=== PATIENT | male | born 1970 | race Caucasian/White ===

== ENCOUNTER 2020-06-21 09:16 | Inpatient (IN) | payer MEDICAID ==
[~2020-06-21] VITALS: Ht 188 cm; Wt 140.6 kg
--- NOTE | 2020-06-21 09:26 | NUR ---
BIBRA 839 FROM [facility] FOR R EYE PAIN AND SWELLING, R SIDED FACIAL PAIN, REDNESS AND SWELLING, R CHEEK WOUND. ON KEFLEX FOR R FACIAL CHEEK ABSCESS. COVID POSITIVE TESTED LAST 05/30/20, ASYMPTOMATIC STATED BY PATIENT. TO ER BED 5, HOOKED TO MONITOR, CHANGED TO HOSP GOWN, WARM BLANKET PROVIDED. PATIENT AAO x 4, BREATHING EVEN AND UNLABORED. DR GALLOWAY AT BEDSIDE FOR EVAL.
--- NOTE | 2020-06-21 09:52 | NUR ---
CORONAVIRUS SWAB DONE AND SENT TO LAB
[2020-06-21] MEDS ORDERED: TRAZ-257 PO (09:56)
[2020-06-21] MEDS ORDERED: FURO20TA4 PO (09:56)
[2020-06-21] MEDS ORDERED: APIX5TAB PO (09:56)
[2020-06-21] MEDS ORDERED: INSU100I34 SQ (09:56)
[2020-06-21] MEDS ORDERED: CEPH500C2 PO (09:56)
[2020-06-21] MEDS ORDERED: CARV3.122 PO (09:56)
[2020-06-21] MEDS ORDERED: PIPERACILLIN /TAZOBACTAM 3.375 G in IV D5W 50 ML IV ONE (10:00)
[2020-06-21] MEDS ORDERED: VANCOMYCIN 1 GM in IV D5W 250 ML IV ONE (10:00)
[2020-06-21 10:05] LABS: BASOPHILS # (AUTO) 0.1 /CMM (0.0-0.2); BASOPHILS % (AUTO) 1.1 % (0.0-2.0); EOSINOPHILS % (AUTO) 3.2 % (0.0-6.0); HEMATOCRIT 39 % (39-51); HEMOGLOBIN 12.7 g/dL (13.5-17.5); LYMPHOCYTES # (AUTO) 1.4 /CMM (0.8-4.8); MEAN CORPUSCULAR HGB CONC 33 g/dl (31.0-36.0); MEAN CORPUSCULAR VOLUME 86 fL (80-96); MONOCYTES # (AUTO) 0.8 /CMM (0.1-1.30); MONOCYTES % (AUTO) 7.9 % (2.0-12.0); NEUTROPHILS # (AUTO) 7.4 /CMM (1.8-8.9); NEUTROPHILS % (AUTO) 73.8 % (43.0-81.0); PLATELET COUNT (AUTO) 191 /CMM (150-450); RED BLOOD CELL COUNT(AUTO) 4.47 MIL/uL (4.5-6.0); WHITE BLOOD COUNT (AUTO) 10.1 K/uL (4.3-11.0)
[2020-06-21 10:19] LABS: CALCIUM, SERUM 8.4 mg/dL (8.5-10.1); CARBON DIOXIDE 28 mmol/L (21-32); CHLORIDE 101 mmol/L (98-107); GLUCOSE 245 mg/dL (74-106); POTASSIUM 3.8 mmol/L (3.5-5.1); SODIUM SERUM 135 mmol/L (136-145); UREA NITROGEN, BLOOD 19 mg/dL (7-18)
[2020-06-21 10:25] LABS: ALANINE AMINOTRANSFERASE 22 U/L (12-78); ALBUMIN 3.2 g/dL (3.4-5.0); ALKALINE PHOSPHATASE 129 U/L (46-116); ASPARTATE AMINOTRANSFERASE 11 U/L (15-37); BILIRUBIN,DIRECT 0.1 mg/dL (0.0-0.2); BILIRUBIN,TOTAL 0.5 mg/dL (0.2-1.0); TOTAL PROTEIN, SERUM 7.3 g/dL (6.4-8.2)
--- NOTE | 2020-06-21 10:25 | NUR ---
PATIENT NOT ABLE TO PROVIDE URINE SAMPLE, MD SALINAS
--- NOTE | 2020-06-21 11:17 | NUR ---
CALLED [facility] ITS DR. SANDERS
--- NOTE | 2020-06-21 11:27 | NUR ---
ROOM [facility]
--- NOTE | 2020-06-21 11:32 | NUR ---
REPORT GIVEN TO SAMANTHA POWELL OF TELE UNIT
[2020-06-21] MEDS ORDERED: IOHEXOL-300 100 ML VIAL IV ONE (11:36)
[2020-06-21] MEDS ORDERED: IV NS 0.9% 250 ML IV ONE (11:37)
[2020-06-21] MEDS ORDERED: VANCOMYCIN 500 MG in IV D5W 100 ML IV ONE (12:00)
[2020-06-21] MEDS ORDERED: ONDANSETRON HCL/PF 4 MG/2 ML VIAL IVP PRN (12:00)
[2020-06-21] MEDS ORDERED: MAGNESIUM HYDROXIDE 30 ML UDC PO PRN (12:00)
[2020-06-21] MEDS ORDERED: ACETAMINOPHEN 325 MG TABLET PO PRN (12:00)
[2020-06-21] MEDS ORDERED: MAG HYDROX/AL HYDROX/SIMETH 30 ML UDC PO PRN (12:00)
[2020-06-21] MEDS ORDERED: DEXTROSE 50%-WATER 50 ML DISP.SYRIN IV PRN (12:00)
[2020-06-21] MEDS ORDERED: Z GUARD REMEDY 2 OZ OINT TP PRN (12:00)
[2020-06-21] MEDS ORDERED: FEE PK DOSING 1 MIN EA MC ONE (12:04)
--- NOTE | 2020-06-21 12:05 | NUR ---
transferred to tele unit via acls protocol
--- NOTE | 2020-06-21 12:20 | NUR ---
RN NOTES ADMITTED FROM EMERGENCY DEPARTMENT REPORT GIVEN BY FERNANDO POWELL. PATIENT ALERT ORIENTED X 4. NO ACUTE DISTRESS NOTED. IV ACCESS PATENT AND INTACT. ORIENTED TO THE ROOM. NEEDS ATTENDED AND ANTICIPATED. SAFETY MEASURES IN PLACE. SHOW HOW TO USE CALL LIGHT, PLACED WITHIN REACH. WILL CONTINUE TO MONITOR ACCORDINGLY.
[2020-06-21] MEDS: BLOOD SUGAR DIAGNOSTIC 1 EACH STRIP IN SCH ×3 (12:40→21:06)
[2020-06-21] MEDS: IV NS 0.9% 1,000 ML IV PRN (12:58)
[2020-06-21] MEDS: APIXABAN 5 MG TABLET PO SCH ×2 (12:59→17:08)
--- NOTE | 2020-06-21 13:15 | NUR ---
MS RN NOTES CALLED PHARMACY FOLLOWED UP VANCOMYCIN IV NOT AVAILABLE YET ON THE FLOOR SPOKE WITH V[facility]URA SAID THEY WILL BRING IT TO THE FLOOR
[2020-06-21] MEDS ORDERED: PIPERACILLIN /TAZOBACTAM 3.375 G in IV D5W 50 ML IV SCH (14:00)
[2020-06-21] MEDS: PIPERACILLIN /TAZOBACTAM 3.375 G in IV D5W 50 ML IV SCH ×2 (16:40→21:05)
[2020-06-21] MEDS: CARVEDILOL 3.125 MG TABLET PO SCH (17:05)
[2020-06-21] MEDS: INSULIN REGULAR, HUMAN 100 UNIT/ML 3 ML VIAL SQ PRN ×2 (17:30→21:50)
--- NOTE | 2020-06-21 18:42 | NUR ---
MS RN NOTES PATIENT IN BED ALERT ORIENTED X 4. NO ACUTE DISTRESS NOTED. BREATHING UNLABORED. IV ACCESS PATENT AND INTACT, NO REDNESS, NO SWELLING NOTED. NEEDS ATTENDED AND ANTICIPATED. KEPT COMFORTABLE. SAFETY MEASURES IN PLACE. CALL LIGHT WITHIN REACH. WILL ENDORSE TO NIGHT FOR CONTINUITY OF CARE.
[2020-06-21 20:00] VITALS: BP 127/80
[2020-06-21] MEDS: TRAZODONE 50 MG TABLET PO SCH (21:05)
[2020-06-21] MEDS: HYDROCODONE/APAP 5/325MG 1 EACH TABLET PO PRN (21:05)
[2020-06-21] MEDS: VANCOMYCIN 1.5 GM in IV D5W 500 ML IV SCH (21:55)
--- NOTE | 2020-06-21 23:15 | NUR ---
RN NOTE REPORT RECEIVED FROM RAINER POWELL FOR CONTINUATION OF CARE.
--- NOTE | 2020-06-21 23:20 | NUR ---
RN NOTE RECEIVED PATIENT IN BED, APPEARS RESTING COMFORTABLY, AOX4, NO S/SX OF ACUTE DISTRESS AT THIS TIME. NO SOB NOTED. PATIENT'S BREATHING IS EVEN AND UNLABORED, SATURATING AT 98% ON ROOM AIR. SWELLING NOTED AT RIGHT SIDE OF FACE. NOTED IV SITE AT RAC G18, PATENT AND FLUSHING WELL, NO S/S OF INFECTION OR INFILTRATION NOTED, WITH NS AT 75 ML HR. SAFETY MEASURES IMPLEMENTED PER PROTOCOL. PATIENT BED ALARM IS ON. HEAD OF BED ELEVATED. BED IS LOCKED, IN LOWEST POSITION AND SIDE RAILS UP. CALL LIGHT WITHIN REACH OF THE PATIENT. WILL CONTINUE TO MONITOR AND REASSESS FOR ANY CHANGES.
--- NOTE | 2020-06-22 02:20 | NUR ---
RN NOTE PATIENT REFUSED LINEN CHANGE AND BED BATH. ABLE TO COLLECT URINE SPECIMEN, SEALED AND LABELED PROPERLY. RASHAUN FROM [facility] WAS NOTIFIED, AND HE ACKNOWLEDGED.
[2020-06-22] MEDS: PIPERACILLIN /TAZOBACTAM 3.375 G in IV D5W 50 ML IV SCH ×4 (03:24→22:28)
[2020-06-22 04:00] VITALS: BP 119/78
[2020-06-22 06:28] LABS: BASOPHILS # (AUTO) 0.1 /CMM (0.0-0.2); BASOPHILS % (AUTO) 0.9 % (0.0-2.0); EOSINOPHILS % (AUTO) 5.2 % (0.0-6.0); HEMATOCRIT 36 % (39-51); HEMOGLOBIN 11.7 g/dL (13.5-17.5); LYMPHOCYTES # (AUTO) 1.4 /CMM (0.8-4.8); LYMPHOCYTES % (AUTO) 19.3 % (20.0-44.0); MEAN CORPUSCULAR HGB CONC 32 g/dl (31.0-36.0); MEAN CORPUSCULAR VOLUME 87 fL (80-96); MONOCYTES # (AUTO) 0.7 /CMM (0.1-1.30); MONOCYTES % (AUTO) 8.9 % (2.0-12.0); NEUTROPHILS # (AUTO) 4.9 /CMM (1.8-8.9); NEUTROPHILS % (AUTO) 65.7 % (43.0-81.0); PLATELET COUNT (AUTO) 159 /CMM (150-450); RED BLOOD CELL COUNT(AUTO) 4.16 MIL/uL (4.5-6.0); WHITE BLOOD COUNT (AUTO) 7.4 K/uL (4.3-11.0)
[2020-06-22 06:34] LABS: D-DIMER 0.28 mg/L(FEU (0.17-0.50)
[2020-06-22 06:58] LABS: CALCIUM, SERUM 8.1 mg/dL (8.5-10.1); MAGNESIUM 2.1 mg/dL (1.8-2.4); POTASSIUM 3.9 mmol/L (3.5-5.1)
[2020-06-22 07:02] LABS: THYROID STIMULATING HORMONE 0.902 uIU/mL (0.358-3.74)
--- NOTE | 2020-06-22 07:13 | NUR ---
RN NOTE PATIENT REMAINS IN ROOM. NO SIGNS OF RESPIRATORY/ACUTE DISTRESS NOTED. NS STILL INFUSING AT 75 ML/HR. DUE MEDICATIONS GIVEN. SAFETY MEASURES IMPLEMENTED, BED IN LOWEST POSITION, LOCKED, SIDE RAILS UP, CALL LIGHT WITHIN REACH. WILL ENDORSE TO AM SHIFT RN FOR CONTINUATION OF CARE.
--- NOTE | 2020-06-22 07:30 | NUR ---
RN OPENING NOTES Received patient in bed, resting calmly, A/O x4, Cook Islander spanker, on room air, saturating well with 99% of O2sat. Denies pain or discomfort, no SOB or resp distress noted. Facial swelling with drainig wound on right side noted, IV line on Right AC noted, running NS @75cc/hr, intact and patent. safety measures implemented, call light within reach, bed in lowest position, will cont to monitor
[2020-06-22] MEDS: PANTOPRAZOLE 40 MG TABLET.DR PO SCH (07:51)
[2020-06-22] MEDS: BLOOD SUGAR DIAGNOSTIC 1 EACH STRIP IN SCH ×4 (07:51→22:22)
[2020-06-22] MEDS: INSULIN REGULAR, HUMAN 100 UNIT/ML 3 ML VIAL SQ PRN ×4 (08:07→22:25)
[2020-06-22] MEDS: APIXABAN 5 MG TABLET PO SCH ×2 (08:08→16:07)
[2020-06-22] MEDS: CARVEDILOL 3.125 MG TABLET PO SCH ×2 (08:10→16:05)
--- NOTE | 2020-06-22 08:11 | NUR ---
qian james, till through results, still pending.
[2020-06-22 09:05] LABS: APPEARANCE,URINE CLOUDY (CLEAR); BILIRUBIN,URINE NEGATIVE (NEGATIVE); BLOOD, URINE NEGATIVE Ery/uL (NEGATIVE); COLOR,URINE YELLOW (YELLOW); KETONES,URINE NEGATIVE (NEGATIVE); LEUKOCYTE ESTERASE ,URINE NEGATIVE (NEGATIVE); NITRITE, URINE NEGATIVE (NEGATIVE); PH,URINE 5.5 (5.0-8.0); PROTEIN,URINE NEGATIVE (NEGATIVE); UGLUCOSE >=1000 mg/dL (NEGATIVE); UROBILINOGEN,URINE 0.2 EU/dL (0.2)
--- NOTE | 2020-06-22 09:15 | NUR ---
Got throgh results, waiting for Vanco delivery from pharmacy
--- NOTE | 2020-06-22 09:45 | NUR ---
Kody Turcios, will hang it as order
[2020-06-22] MEDS: VANCOMYCIN 1.5 GM in IV D5W 500 ML IV SCH ×2 (09:47→20:23)
[2020-06-22] MEDS: IV NS 0.9% 1,000 ML IV PRN (09:49)
[2020-06-22 09:53] LABS: BACTERIA,URINE Rare /HPF (None Seen); RBC,URINE 0-2 /HPF (0-2); SQUAMOUS EPITHELIAL CELL,UR Rare /HPF (None Seen); URIC ACID CRYSTALS,URINE Moderate /HPF (None Seen); WBC,URINE 0-2 /HPF (0-3)
--- NOTE | 2020-06-22 10:13 | NUR ---
Holding Zosyn until Vanco will be finished, pharmacy notified
[2020-06-22 12:00] VITALS: BP 134/83
[2020-06-22] MEDS: HYDROCODONE/APAP 5/325MG 1 EACH TABLET PO PRN ×2 (12:26→21:05)
--- NOTE | 2020-06-22 16:36 | NUR ---
Herb Gama from [facility] called, informed about MRSA in right nares
--- NOTE | 2020-06-22 18:40 | NUR ---
RN CLOSING NOTES Patient remains in bed, resting, denied pain or discomfort, no s/sx of resp distress or SOB noted, IV NS running @ 75cc/hr, tolerating well, patent and intact. Comfort needs are met, all medications given, safety measures implemented, call light in reach, bed in lowest position, will endorse to PM shift RN for PERLA
--- NOTE | 2020-06-22 19:20 | NUR ---
RN NOTE RECEIVED PATIENT IN BED RESTING WITH HOB ELEVATED, AWAKE, WATCHING TV. A&O X4. ABLE TO MAKE NEEDS KNOWN IN [place]. BREATHING IS EVEN AND NON LABORED, NO SOB NOTED AT THIS TIME. ON ROOM AIR, SATURATING AT 97% AT THIS TIME. IV SITE ON RAC GAUGE 18 IS CLEAN, DRY, AND PATENT. ON FLUID HYDRATION RUNNING AT 75 MLS/HR. ON ISOLATION FOR R/O COVID AND MRSA OF RIGHT NARE. URINAL AT BEDSIDE. AMBULATORY. NOTED WITH FACIAL SWELLING AND OPEN WOUND ON FACE. IN NO APPARENT DISTRESS NOTED AT THIS TIME. CALL LIGHT IS WITHIN EASY REACH. WILL CONTINUE TO MONITOR.
[2020-06-22 20:00] VITALS: BP 134/73
[2020-06-22] MEDS: MUPIROCIN OINT 2% 22 GM TUBE NS SCH (20:24)
[2020-06-22] MEDS: TRAZODONE 50 MG TABLET PO SCH (21:04)
[2020-06-23] MEDS: IV NS 0.9% 1,000 ML IV PRN (00:05)
[2020-06-23] MEDS: PIPERACILLIN /TAZOBACTAM 3.375 G in IV D5W 50 ML IV SCH ×4 (03:12→22:25)
[2020-06-23 04:00] VITALS: BP 144/77
--- NOTE | 2020-06-23 06:46 | NUR ---
RN NOTE PATIENT REMAINED STABLE THROUGHOUT THE NIGHT. NO SIGNIFICANT CHANGES NOTED. ALL DUE MEDS GIVEN AND TOLERATED WELL. ALL NEEDS ATTENDED AND MET. PATIENT IS MOTIVATED TO SELF CARE. PATIENT REFUSED TO HAVE BED LINENS CHANGED THIS MORNING. COVID TEST IS STILL PENDING AT THIS TIME. CALL LIGHT IS WITHIN EASY REACH. WILL ENDORSE TO AM SHIFT RN FOR CONTINUATION OF CARE.
[2020-06-23 07:09] LABS: BASOPHILS # (AUTO) 0.1 /CMM (0.0-0.2); EOSINOPHILS % (AUTO) 6.1 % (0.0-6.0); HEMATOCRIT 37 % (39-51); HEMOGLOBIN 12.2 g/dL (13.5-17.5); LYMPHOCYTES # (AUTO) 1.4 /CMM (0.8-4.8); LYMPHOCYTES % (AUTO) 24.2 % (20.0-44.0); MEAN CORPUSCULAR HGB CONC 33 g/dl (31.0-36.0); MEAN CORPUSCULAR VOLUME 86 fL (80-96); MONOCYTES # (AUTO) 0.5 /CMM (0.1-1.30); MONOCYTES % (AUTO) 7.9 % (2.0-12.0); NEUTROPHILS # (AUTO) 3.6 /CMM (1.8-8.9); NEUTROPHILS % (AUTO) 60.8 % (43.0-81.0); PLATELET COUNT (AUTO) 177 /CMM (150-450); RED BLOOD CELL COUNT(AUTO) 4.32 MIL/uL (4.5-6.0); WHITE BLOOD COUNT (AUTO) 5.9 K/uL (4.3-11.0)
--- NOTE | 2020-06-23 07:30 | NUR ---
RA OPENING NOTES: PATIENT IN BED, AWAKE, EASY TO AROUSE, COOPERATIVE, NO SIGNS OF RESPIRATORY DISTRESS, NO SIGNS OF DIFFICULTY BREATHING, NO SIGNS OF PAIN. PATIENT IS ON ROOM AIR, SATURATING WELL 98%, AMBULATORY, ABLE TO LET THE NEEDS KNOW. IV ON THE RIGHT AC #18 IS INTACT, PATENT, AND FLUSHED WELL NO SIGNS OF INFILTRATION NOTED. BED IS IN THE LOWEST POSITION, BED ALARM IS ON, SIDE RAILS ARE UP, CALL LIGHT WITHIN REACH. WILL CONTINUE TO MONITOR.
[2020-06-23 07:45] LABS: CALCIUM, SERUM 8.5 mg/dL (8.5-10.1); CREATININE 0.8 mg/dL (0.6-1.3); MAGNESIUM 1.9 mg/dL (1.8-2.4); PHOSPHORUS 3.5 mg/dL (2.5-4.9); POTASSIUM 4.1 mmol/L (3.5-5.1)
[2020-06-23] MEDS: PANTOPRAZOLE 40 MG TABLET.DR PO SCH (08:13)
[2020-06-23] MEDS: APIXABAN 5 MG TABLET PO SCH ×2 (08:13→16:47)
[2020-06-23] MEDS: CARVEDILOL 3.125 MG TABLET PO SCH ×2 (08:14→16:45)
[2020-06-23] MEDS: BLOOD SUGAR DIAGNOSTIC 1 EACH STRIP IN SCH ×4 (08:14→22:25)
[2020-06-23] MEDS: MUPIROCIN OINT 2% 22 GM TUBE NS SCH ×2 (08:15→20:04)
[2020-06-23] MEDS: INSULIN REGULAR, HUMAN 100 UNIT/ML 3 ML VIAL SQ PRN ×4 (08:35→22:26)
[2020-06-23] MEDS: VANCOMYCIN 1.5 GM in IV D5W 500 ML IV SCH ×2 (09:50→20:04)
[2020-06-23] MEDS: HYDROCODONE/APAP 5/325MG 1 EACH TABLET PO PRN (11:30)
[2020-06-23 12:00] VITALS: BP 126/79
[2020-06-23 16:00] VITALS: BP 93/60
--- NOTE | 2020-06-23 18:34 | NUR ---
RN CLOSING NOTES: PATIENT DID NOT HAVE ANY MAJOR CHANGES THROUGHOUT THE SHIFT. PATIENT DID NOT SHOW ANY SIGNS OF RESPIRATORY DISTRESS. PATIENT WAS IN PAIN MEDICATION WAS GIVEN PAIN LEVEL WAS DECREASED. PATIENT IN BED, LOWEST POSITION, SIDE RAILS UP, CALL LIGHT WITHIN REACH. ALL SAFETY NEEDS WERE DONE. WILL ENDORSE TO PM NURSE FOR PERLA.
--- NOTE | 2020-06-23 19:05 | NUR ---
RN OPENING NOTES RECEIVED PT ON BED AWAKE A/OX3 NO SIGN AND SYMPTOMS OF RESPIRATORY DISTRESS, SPO2 95% VIA RA, WITH RAC # 20 IV WITH ONGOING NS @ 75ML/HR INFUSING WELL ON DROPLET ISOLATION D/T COVID (+) SAFETY MEASURE MAINTAINED WILL CONT TO MONITOR
[2020-06-23 20:00] VITALS: BP 127/78
--- NOTE | 2020-06-23 21:44 | NUR ---
RECEIVED REPORTS FROM SHERRY LAMAR FOR CONTINUITY OF CARE.
--- NOTE | 2020-06-23 21:46 | NUR ---
CHECKED THE PATIENT, AWAKE. PATIENT IN BED. NO SOB NOTED. ON COVID ISOLATION.
[2020-06-23] MEDS: TRAZODONE 50 MG TABLET PO SCH (22:24)
[2020-06-24] VITALS: BP 134/83
[2020-06-24 04:00] VITALS: BP 113/66
[2020-06-24] MEDS: PIPERACILLIN /TAZOBACTAM 3.375 G in IV D5W 50 ML IV SCH ×2 (04:11→09:31)
--- NOTE | 2020-06-24 07:05 | NUR ---
RN OPENING NOTES RECEIVED PT ON BED AWAKE A/OX3 NO SIGN AND SYMPTOMS OF RESPIRATORY DISTRESS, PATIENT ON RA, SATURATING AT 96%. RAC # 20 IV SL NOTED. SAFETY MEASURE MAINTAINED, BED IN LOWEST POSITION, SIDE RAILS UP X 2, CALL LIGHT WITHIN EASY REACH. WILL CONT TO MONITOR
[2020-06-24] MEDS: PANTOPRAZOLE 40 MG TABLET.DR PO SCH (07:44)
[2020-06-24] MEDS: BLOOD SUGAR DIAGNOSTIC 1 EACH STRIP IN SCH ×2 (07:57→11:58)
[2020-06-24] MEDS: INSULIN REGULAR, HUMAN 100 UNIT/ML 3 ML VIAL SQ PRN ×2 (08:01→12:01)
[2020-06-24 09:05] LABS: CALCIUM, SERUM 8.8 mg/dL (8.5-10.1); CREATININE 0.9 mg/dL (0.6-1.3); POTASSIUM 3.9 mmol/L (3.5-5.1)
[2020-06-24] MEDS: CARVEDILOL 3.125 MG TABLET PO SCH (09:26)
[2020-06-24] MEDS: APIXABAN 5 MG TABLET PO SCH (09:30)
[2020-06-24] MEDS: MUPIROCIN OINT 2% 22 GM TUBE NS SCH (09:46)
[2020-06-24] MEDS: VANCOMYCIN 1.5 GM in IV D5W 500 ML IV SCH ×2 (10:06→11:01)
[2020-06-24] MEDS: HYDROCODONE/APAP 5/325MG 1 EACH TABLET PO PRN (10:21)
[2020-06-24 12:00] VITALS: BP 124/76
--- NOTE | 2020-06-24 15:38 | NUR ---
RN NOTES DISCHARGE ORDER, PAN DEVULCANIZER JOHN IS ARRANGING DISCHARGE FOR PATIENT. EXIT CARE DONE, IV REMOVED.
--- NOTE | 2020-06-24 15:55 | NUR ---
RN NOTES WHEELCHAIRED PATIENT TO SECURITY DOOR FOR [employer].
== END 2020-06-24 15:56 | disposition home or self-care (01) | DRG 383 ==
LOC: ER 09:24 → MEDSG1 11:42
DX: L03.213 Periorbital cellulitis (principal); U07.1 COVID-19; E88.09 Other disorders of plasma-protein metabolism, not elsewhere classified; I10 Essential (primary) hypertension; L03.211 Cellulitis of face; E11.65 Type 2 diabetes mellitus with hyperglycemia; E66.01 Morbid (severe) obesity due to excess calories; G47.33 Obstructive sleep apnea (adult) (pediatric); Z68.39 Body mass index [BMI] 39.0-39.9, adult; Z79.4 Long term (current) use of insulin
CPT/HCPCS: 36415; 70487-TC; 71045-TC; 80048-TC; 80061-TC; 80076-TC; 80202-TC; 81000-TC; 82550-TC; 82728-TC; 82962-TC; 83605-TC; 83615-TC; 83735-TC; 84100-TC; 84443-TC; 84484-TC; 85025-TC; 85378-TC; 85385-TC; 85730-TC; 86140-TC; 87040-TC; 87081-TC; 87086-TC; G0378; J1815; J2543; J3370; J7030; J7050; J7060; Q9967; U0003-CS